=== PATIENT | female | born 2000 | race Caucasian/White ===

== ENCOUNTER → 2024-05-28 10:51 | Outpatient (CLI) | payer BC, SELFPAY ==
[2024-05-28 19:41] LABS: Add Manual Diff / Slide Review NO; Basophils Absolute Auto 0 /uL (0-100); Basophils Percent Auto 0.5 % (0-2); Eosinophils Absolute Auto 100 /uL (0-450); Eosinophils Percent Auto 1.4 % (2-4); Hematocrit 42.1 % (36-46); Lymphocytes Absolute Auto 2500 /uL (1100-4500); Lymphocytes Percent Auto 32.5 % (25-40); Mean Corpuscular HGB Conc 33.3 % (30-36); Mean Corpuscular Hemoglobin 29.2 PG (26-34); Mean Corpuscular Volume 87.8 fL (80-100); Monocytes Absolute Auto 600 /uL (0-900); Monocytes Percent Auto 7.4 % (3-14); Neutrophils Absolute Auto 4500 /uL (1500-7000); Neutrophils Percent Auto 58.2 % (50-75); Platelet Count 248 X10^3/uL (150-400); Red Cell Distribution Width 13.3 % (11.6-14.8); White Blood Cell Count 7.7 X10^3/uL (4.5-11.0)
[2024-05-28 19:52] LABS: HEMOLYSIS < 15 (0-50); Iron 91 ug/dL (37-170)
[2024-05-28 19:59] LABS: Alanine Aminotransferase 12 IU/L (<35); Albumin 4.7 g/dL (3.5-5.0); Albumin Globulin Ratio 1.6 (1.0-2.8); Alkaline Phosphatase 75 U/L (38-126); Aspartate Aminotransferase 54 IU/L (14-36); BUN Creatinine Ratio 7.7 (6-22); Bilirubin Total 0.4 mg/dL (0.2-1.3); Blood Urea Nitrogen 6 mg/dL (7-17); Calcium 9.8 mg/dL (8.4-10.2); Carbon Dioxide 26 mmol/L (22-32); Chloride 104 mmol/L (98-107); Cholesterol 154 mg/dL (140-199); Estimated Glomerular Filt Rate > 60 mL/min (>60); Globulin 2.9 g/dL (1.7-4.1); Glucose 95 mg/dL (70-100); HDL Cholesterol 51 mg/dL (40-60); HEMOLYSIS 19 (0-50); LDL Cholesterol Calculated 81 mg/dL (<100); Potassium 3.8 mmol/L (3.4-5.1); Sodium 138 mmol/L (137-145); Total Protein 7.6 g/dL (6.3-8.2); Triglycerides 111 mg/dL (35-150)
[2024-05-28 20:08] LABS: Percent Iron Saturation 31 % (15-50); Total Iron Binding Capacity 292 ug/dL (265-497); Transferrin 257 mg/dL (206-381)
[2024-05-28 20:40] LABS: Ferritin 25 ng/mL (6-137); Testosterone 142 ng/dL (5.71-77.0)
== END ==
PROVIDERS: PCP Family Medicine; Visit Provider Family Medicine
DX: F64.9 Gender identity disorder, unspecified (principal); Z13.0 Encounter for screening for diseases of the blood and blood-forming organs and certain disorders involving the immune mechanism; Z13.6 Encounter for screening for cardiovascular disorders; Z13.1 Encounter for screening for diabetes mellitus; Z79.890 Hormone replacement therapy; R42 Dizziness and giddiness
CPT/HCPCS: 80053; 80061; 82728; 83540; 83550; 84403; 85025

== ENCOUNTER → 2024-08-06 09:50 | Outpatient (CLI) | payer BC, MEDICAID, SELFPAY ==
[2024-08-06 22:22] LABS: Alanine Aminotransferase 15 IU/L (<35); Albumin Globulin Ratio 1.9 (1.0-2.8); Alkaline Phosphatase 59 U/L (38-126); Aspartate Aminotransferase 25 IU/L (14-36); Bilirubin Total 0.3 mg/dL (0.2-1.3); Globulin 2.7 g/dL (1.7-4.1); HEMOLYSIS < 15 (0-50); Total Protein 7.7 g/dL (6.3-8.2)
[2024-08-06 22:58] LABS: Ferritin 42 ng/mL (6-137); Testosterone 438 ng/dL (5.71-77.0)
[2024-08-09 00:12] LABS: HBsAg Screen Negative (Negative); Hepatitis A Antibody IgM Negative (Negative); Hepatitis B Core Antibody IgM Negative (Negative); Hepatitis C Antibody Non Reactive (Non Reactive)
[2024-08-11 14:12] LABS: ANA Screen, IFA Negative (.)
== END ==
PROVIDERS: PCP Family Medicine; Visit Provider Family Medicine
DX: R74.01 Elevation of levels of liver transaminase levels (principal); E61.1 Iron deficiency; Z79.890 Hormone replacement therapy
CPT/HCPCS: 80074; 80076; 82728; 84403; 86038

== ENCOUNTER → 2024-08-07 09:05 | Outpatient (CLI) | payer BC, MEDICAID, SELFPAY ==
--- NOTE | 2024-08-07 09:06 | DI.MRI.S_ITS ---
PROCEDURE: MR ANKLE LT WO CON INDICATIONS: MR L ankle and foot. New acute injury with negative x-ray TECHNIQUE: Noncontrast sagittal T1 spin echo and T2 fast spin echo with fat saturation, axial proton density fast spin echo and T2 fast spin echo with fat saturation, coronal T1 spin echo and T2 fast spin echo with fat saturation through the ankle/hindfoot. COMPARISON: [facility]- [facility] ([facility]), CR, XR ANKLE LT MIN 3V, 07/15/2024, 12:16. FINDINGS: Image quality: Excellent. Bones: There is a 0.5 cm T2 mildly hyperintense lesion in the anterior calcaneal body (6/16), likely representing a bone graft donor site or prior anchor site. 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 The bone marrow signal is otherwise normal. The anterior process of the calcaneus and lateral process of the talus are intact. No talar dome osteochondral defect is seen. Joints: There is no significant joint effusion. Sinus tarsi: The sinus tarsi signal is normal. Syndesmotic ligaments: The anterior and posterior inferior syndesmotic ligaments are normal. Lateral collateral ligament: Susceptibility artifact is present at the tip of the lateral malleolus along with thickening of the inferior extensor retinaculum and reconstructed anterior talofibular ligament, likely secondary to a prior modified Brostrom repair. There is low signal thickening of the posterior talofibular ligament. The calcaneofibular ligament is intact. Deltoid ligament: The visualized components of the deltoid ligament, that being the posterior tibiotalar and tibiospring ligaments, are normal. Calcaneonavicular spring ligament: The superomedial component of the calcaneonavicular spring ligament is grossly intact. Tendons: The location of the tibialis posterior tendon has been modified around the navicular (postsurgical). The Achilles tendon is normal. The extensor, flexor and peroneal tendons are otherwise normal. The peroneal tendons are appropriately situated within the retromalleolar groove, and the superficial peroneal retinaculum is intact. Plantar aponeurosis: There is no abnormal thickening of, abnormal intrasubstance signal involving, or perifascial edema about the plantar aponeurosis. Plantar musculature: There are no findings of denervation involving the plantar muscles of the foot. Nerves: The visualized nerves are unremarkable. Other: No other acute abnormality. IMPRESSION: 1. 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 Please correlate with prior surgical history. 2. Chronic sprain of the posterior talofibular ligament of the lateral collateral ligament complex. 3. No other acute MR abnormality of the left ankle. Dictated by: Hussain Frausto M.D. on 08/07/2024 at 13:47 Approved by: Hussain Frausto M.D. on 08/07/2024 at 14:01
== END ==
PROVIDERS: PCP Family Medicine; Referring Provider Family Medicine; Visit Provider Family Medicine
DX: S93.492A Sprain of other ligament of left ankle, initial encounter (principal); M25.579 Pain in unspecified ankle and joints of unspecified foot; G89.29 Other chronic pain; Z98.890 Other specified postprocedural states
CPT/HCPCS: 73721

== ENCOUNTER → 2024-11-10 11:24 | Outpatient (CLI) | payer OTHER, SELFPAY ==
[2024-11-10 19:35] LABS: Alanine Aminotransferase 11 IU/L (<35); Albumin 4.8 g/dL (3.5-5.0); Albumin Globulin Ratio 1.7 (1.0-2.8); Alkaline Phosphatase 62 U/L (38-126); Aspartate Aminotransferase 24 IU/L (14-36); BUN Creatinine Ratio 23.9 (6-22); Bilirubin Total 0.7 mg/dL (0.2-1.3); Blood Urea Nitrogen 17 mg/dL (7-17); Calcium 9.9 mg/dL (8.4-10.2); Carbon Dioxide 28 mmol/L (22-32); Chloride 102 mmol/L (98-107); Estimated Glomerular Filt Rate > 60 mL/min (>60); Globulin 2.9 g/dL (1.7-4.1); Glucose 93 mg/dL (70-99); HEMOLYSIS 17 (0-50); Potassium 4.5 mmol/L (3.4-5.1); Sodium 139 mmol/L (137-145); Total Protein 7.7 g/dL (6.3-8.2)
[2024-11-10 20:14] LABS: Ferritin 24 ng/mL (6-137); Testosterone 321 ng/dL (5.71-77.0)
== END ==
PROVIDERS: PCP Family Medicine; Visit Provider Family Medicine
DX: R45.89 Other symptoms and signs involving emotional state (principal); R74.01 Elevation of levels of liver transaminase levels; Z79.890 Hormone replacement therapy; G89.29 Other chronic pain
CPT/HCPCS: 80053; 82728; 84403

== ENCOUNTER → 2025-03-16 12:06 | Outpatient (CLI) | payer BC, OTHER, SELFPAY ==
[2025-03-16 19:13] LABS: Alanine Aminotransferase 11 IU/L (<35); Albumin 4.5 g/dL (3.5-5.0); Albumin Globulin Ratio 1.6 (1.0-2.8); Alkaline Phosphatase 57 U/L (38-126); Blood Urea Nitrogen 14 mg/dL (7-17); Calcium 9.2 mg/dL (8.4-10.2); Carbon Dioxide 24 mmol/L (22-32); Chloride 105 mmol/L (98-107); Estimated Glomerular Filt Rate > 60 mL/min (>60); Globulin 2.8 g/dL (1.7-4.1); Glucose 91 mg/dL (70-99); HEMOLYSIS < 15 (0-50); Potassium 4.3 mmol/L (3.4-5.1); Sodium 138 mmol/L (137-145); Total Protein 7.3 g/dL (6.3-8.2)
[2025-03-16 19:51] LABS: Ferritin 11 ng/mL (6-137)
== END ==
PROVIDERS: PCP Family Medicine; Visit Provider Family Medicine
DX: E61.1 Iron deficiency (principal); F64.9 Gender identity disorder, unspecified; M25.571 Pain in right ankle and joints of right foot; G89.29 Other chronic pain; R45.89 Other symptoms and signs involving emotional state
CPT/HCPCS: 80053; 82728; 84403

== ENCOUNTER → 2025-04-08 13:05 | Outpatient (CLI) | payer BC, OTHER, SELFPAY ==
[2025-04-08 20:37] LABS: Estradiol, Total 51.0 pg/mL
== END ==
PROVIDERS: PCP Family Medicine; Visit Provider Family Medicine
DX: F64.9 Gender identity disorder, unspecified (principal); Z79.890 Hormone replacement therapy
CPT/HCPCS: 82670; 84403